=== PATIENT | male | born 1950 | race Caucasian/White ===

== ENCOUNTER 2017-08-08 06:00 | Day surgery (SDC) | payer MEDICARE, OTHER ==
[2017-08-07 14:51] VITALS: BP 130/84
[2017-08-07 14:57] LABS: BASOPHILS # (AUTO) 0.03 x10^3/uL (0-0.1); BASOPHILS % (AUTO) 0 % (0-1); EOSINOPHILS # (AUTO) 0.24 x10^3/uL (0-0.4); EOSINOPHILS % (AUTO) 3 % (1-7); LYMPHOCYTES # (AUTO) 2.82 x10^3/uL (1-3.4); LYMPHOCYTES % (AUTO) 34 % (22-44); MD NO; MEAN CORPUSCULAR HGB CONC 33.6 g/dL (33.2-36.2); MEAN CORPUSCULAR VOLUME 92.4 fL (81-97); MEAN PLATELET VOLUME 7.9 fL (7.4-10.4); MONOCYTES # (AUTO) 0.77 x10^3/uL (0.2-0.8); MONOCYTES % (AUTO) 9 % (2-9); NEUTROPHILS # (AUTO) 4.56 x10^3/uL (1.8-6.8); NEUTROPHILS % (AUTO) 54 % (42-75); PLATELET COUNT 295 x10^3/uL (130-400); RED CELL DISTRIBUTION WIDTH 13.1 % (9.4-14.8)
[2017-08-07 15:09] LABS: ALANINE AMINOTRANSFERASE 42 U/L (12-78); ALBUMIN 3.8 g/dL (3.4-5.0); ANION GAP 8 mmol/L (5-15); CALCIUM 8.9 mg/dL (8.5-10.1); CHLORIDE 107 mmol/L (98-107); CREATININE 1.09 mg/dL (0.7-1.3)
[2017-08-07 15:12] LABS: ALKALINE PHOSPHATASE 62 U/L (45-117); BILIRUBIN,TOTAL 0.7 mg/dL (0.2-1.0); TOTAL PROTEIN 7.2 g/dL (6.4-8.2)
[2017-08-07 15:14] LABS: INTERNATIONAL NORMALIZED RATIO 0.99 (0.93-1.1); PROTHROMBIN TIME 10.3 Seconds (9.6-11.5)
[~2017-08-08] VITALS: Ht 172.7 cm; Wt 77.3 kg
[~2017-08-08 06:00] MED LIST: FISH OIL PO; PRAV80TA2 PO
[2017-08-08] MEDS ORDERED: SODIUM CHLORIDE 0.9% 1,000 ML IV SCH (06:10)
[2017-08-08] MEDS ORDERED: FENTANYL PF 100 MCG/2ML ONE (07:40)
[2017-08-08] MEDS ORDERED: MIDAZOLAM 1 MG/ML, 5ML ONE (07:40)
[2017-08-08] MEDS ORDERED: ISOPROTERENOL 0.2MG/ML, 5ML ONE (07:40)
[2017-08-08] MEDS ORDERED: LIDOCAINE/PF 1%, 30ML ONE (07:40)
[2017-08-08] MEDS ORDERED: ADENOSINE 6 MG/2 ML ONE (07:40)
[2017-08-08] MEDS ORDERED: HEPARIN 1,000 UNITS/ML, 10ML ONE (08:13)
[2017-08-08] MEDS ORDERED: PRAVASTATIN 40 MG TABLET PO SCH (21:00)
[2017-08-09] MEDS ORDERED: OMEGA-3/FISH OIL CAPSULE PO SCH (09:00)
== END 2017-08-08 13:40 ==
LOC: CACL 06:00
PROVIDERS: ATTEND Internal Medicine Cardiovascular Disease
DX: I47.2 Ventricular tachycardia (principal); I48.91 Unspecified atrial fibrillation; I47.1 Supraventricular tachycardia; Z72.89 Other problems related to lifestyle
CPT/HCPCS: 36415; 71046; 80053; 85025; 85610; 85730; 93613; 93620; 93621; 93623; 99156; 99157; C1730; C1894; C2630; J2250; J3010; J3490; J0153; J1644